=== PATIENT | male | born 1965 | race Hispanic/Latino ===

== ENCOUNTER 2019-12-02 10:09 | Emergency (ER) | payer OTHER, SELFPAY ==
--- NOTE | 2019-12-02 10:34 | RAD REPORT ---
EXAM DESCRIPTION: RAD - Chest Single View - 12/02/2019 10:22 am CLINICAL HISTORY: TRAUMA Chest pain. COMPARISON: CHEST PA AND LAT 2 VIEW dated 03/15/2014 FINDINGS: Portable technique limits examination quality. Emphysematous changes are present throughout the lungs. The heart is normal in size. No displaced fra ctures. IMPRESSION: COPD.
--- NOTE | 2019-12-02 10:38 | RAD REPORT ---
EXAM DESCRIPTION: CT - CTHCSPWOC - 12/02/2019 10:21 am CLINICAL HISTORY: Trauma, head and neck injury. fall injury > 8 ft;Pain COMPARISON: No comparisons TECHNIQUE: Axial 5 mm thick images of the head were obtained. Axial 2 mm thick images of the cervical spine were obtained with sagittal and coronal reconstruction images generated and reviewed. All CT scans are performed using dose optimization technique as appropriate and may include automated exposure control or mA/KV adjustment according to patient size. FINDINGS: CT HEAD WITHOUT CONTRAST: No acute hemorrhage, hydrocephalus or extra-axial collection is identified.No areas of brain edema or midline shift. Moderate multifocal paranasal sinus disease.The calvarium is intact. Small posterior scalp hematoma. CT CERVICAL SPINE WITHOUT CONTRAST: No fracture or subluxation.No prevertebral soft tissues swelling is identified. IMPRESSION: No acute intracranial or cervical spine findings.
[2019-12-02] MEDS ORDERED: TETANUS & DIPHTHERIA TOX,ADULT 0.5 ML VIAL ONE (10:39)
[2019-12-02 10:53] LABS: Absolute Lymphocytes (CBC) 2.7 K/uL (0.7-4.9); Basophils % 0.8 % (0-1.3); Hematocrit 46.3 % (39.6-49.0); Lymphocytes % 29.9 % (15.3-44.8); MPV 7.9 fL (7.6-11.3); RBC Red Blood Cell Count 4.96 M/uL (4.33-5.43)
[2019-12-02 11:07] LABS: BUN Blood Urea Nitrogen 11 mg/dL (7-18); Bicarbonate 26 mmol/L (21-32); Glucose Level 107 mg/dL (74-106); Potassium 3.6 mmol/L (3.5-5.1); Sodium Level 139 mmol/L (136-145)
--- NOTE | 2019-12-02 11:27 | ER ---
Nurse's Notes [facility] Name: Junito Ibrahim Age: 54 yrs Sex: Male : 1965 Arrival Date: 12/02/2019 Time: 10:11 Bed 4 Private MD: Diagnosis: Superficial injury of head;Laceration without foreign body of scalp Presentation: 12/02 10:10 Presenting complaint: EMS states: Pt on ladder, ladder fell backwards, pt fell straight jl7 onto back and hit head, positive LOC. Pt A\T\Ox4, denies pain, denies nausea, laceration noted to posterior scalp, bleeding controlled. Care prior to arrival: IV initiated. 20 GA, in the right antecubital area. Mechanism of Injury: Fall from ladder approximately 10 feet. 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 10:10 Acuity: TINY 2 jl7 10:10 Method Of Arrival: EMS: [facility] jl7 10:22 Transition of care: patient was not received from another setting of care. Onset of jl7 symptoms. Risk Assessment: Do you want to hurt yourself or someone else? Patient reports no desire to harm self or others. Initial Sepsis Screen: Does the patient meet any 2 criteria? No. Patient's initial sepsis screen is negative. Does the patient have a suspected source of infection? No. Patient's initial sepsis screen is negative. Trauma Activation: Alert Physician: ED Physician; Name: SUNNI Mullins; Notified At: 10:07; Arrived At: 10:07 Physician: General Surgeon; Name: ; Notified At: 10:07; Arrived At: Physician: Radiology; Name: Kari; Notified At: 10:07; Arrived At: 10:08 Physician: Respiratory; Name: ; Notified At: 10:07; Arrived At: Physician: Lab; Name: ; Notified At: 10:07; Arrived At: Historical: - Allergies: 10:14 Uknown pain medication; jl7 - Home Meds: 10:14 None [Active]; jl7 - PMHx: 10:14 None; jl7 - PSHx: 10:14 None; jl7 - Immunization history:: Last tetanus immunization: > 10 years ago. - Coronavirus screen:: The patient has NOT traveled to [place] in the past 14 days. Proceed with normal triage process as indicated. - Immunization history: Last tetanus immunization: > 10 years ago. - Social history:: Smoking status: Patient reports the use of cigarette tobacco products, smokes one pack cigarettes per day. - Ebola Screening: : No symptoms or risks identified at this time. Screenin:10 Abuse screen: Denies threats or abuse. Denies injuries from another. Tuberculosis jl7 screening: No symptoms or risk factors identified. 11:19 Nutritional screening: No deficits noted. Fall Risk IV access (20 points). Total Hodge jl7 Fall Scale indicates No Risk (0-24 pts). Primary Survey: 10:10 NO uncontrolled hemorrhage observed. A: Airway: patent. Breathing/Chest: Respiratory jl7 pattern: regular, Respiratory effort: spontaneous, unlabored, Breath sounds: clear, bilaterally. Chest inspection: symmetrical rise and fall of the chest. Circulation: Skin color: pink, Skin temperature: warm. Disability Alert. Exposure/Environment: All clothing and personal items were removed. Forensic evidence collection is not deemed to be indicated at this time. Items placed in patient belonging bag. 10:30 Reassessment Airway Airway Patent Breathing/Chest Respiratory pattern Regular jl7 Respiratory effort Spontaneous Unlabored Chest inspection Symmetrical Circulation Color Dickson Temperature Warm Disability Alert. Secondary Survey: 10:10 HEENT: Head Other 2.5 cm laceration to posterior scalp, bleeding controlled. jl7 Assessment: 10:10 General: Appears in no apparent distress. uncomfortable, Behavior is calm, cooperative, jl7 appropriate for age. Pain: Complains of pain in back of head Pain currently is 5 out of 10 on a pain scale. Neuro: Level of Consciousness is awake, alert, obeys commands, Oriented to person, place, time, situation, Pupils are PERRL. EENT: Oral mucosa is moist. Cardiovascular: Denies chest pain, Patient's skin is warm and dry. Respiratory: Airway is patent Respiratory effort is even, unlabored, Respiratory pattern is regular, symmetrical, Denies shortness of breath. GI: Abdomen is round non-distended, Patient currently denies abdominal pain. Derm: Skin is pink, warm \T\ dry. Injury Description: Laceration sustained to back of head is contaminated, 0.5 to 2.5 cm long, was sustained less than 30 minutes ago. a small amount of bleeding noted at this time. 11:15 Reassessment: Patient appears in no apparent distress at this time. No changes from jl7 previously documented assessment. Patient and/or family updated on plan of care and expected duration. Pain level reassessed. Patient is alert, oriented x 3, equal unlabored respirations, skin warm/dry/pink. Vital Signs: 10:10 BP 168 / 99; Pulse 76; Resp 17 S; Temp 97.8(TE); Pulse Ox 100% on R/A; Weight 106.59 kg jl7 (R); Pain 5/10; 11:05 BP 139 / 87; Pulse 73; Resp 16; Temp 98.0; Pulse Ox 98% on R/A; em1 11:45 BP 141 / 87; Pulse 73; Resp 16 S; Pulse Ox 98% on R/A; jl7 Boon Coma Score: 10:10 Eye Response: spontaneous(4). Verbal Response: oriented(5). Motor Response: obeys jl7 commands(6). Total: 15. 11:05 Eye Response: spontaneous(4). Verbal Response: oriented(5). Motor Response: obeys jl7 commands(6). Total: 15. 11:45 Eye Response: spontaneous(4). Verbal Response: oriented(5). Motor Response: obeys jl7 commands(6). Total: 15. Trauma Score (Adult): 10:10 Eye Response: spontaneous(1); Verbal Response: oriented(1); Motor Response: obeys jl7 commands(2); Systolic BP: > 89 mm Hg(4); Respiratory Rate: 10 to 29 per min(4); Rick Score: 15; Trauma Score: 12 ED Course: 10:10 Patient has correct armband on for positive identification. Placed in gown. Bed in low jl7 position. Call light in reach. Side rails up X2. 10:10 Pulse ox on. NIBP on. jl7 10:10 Patient maintains SpO2 saturation greater than 95% on room air. Thermoregulation: warm jl7 blanket given to patient. 10:11 Patient arrived in ED. hb 10:11 Tiffanie Mcmanus, RN is Primary Nurse. hb 10:12 Gabe Garnett PA is PHCP. jr8 10:12 Brent Poole MD is Attending Physician. jr8 10:19 Triage completed. jl7 10:21 CT Head C Spine In Process Unspecified. EDMS 10:22 Arm band placed on right wrist. jl7 10:23 XRAY Chest (1 view) In Process Unspecified. EDMS 10:30 Gaby Browning, ALAYNA is Primary Nurse. jl7 10:40 Initial lab(s) drawn, by pr, sent to lab. jl7 10:45 Wound care: to laceration located on scalp was cleaned with soap and water, ice pack jl7 applied. Patient tolerated well. 11:00 Assist provider with laceration repair on back of head that was 2.5 cm. or less using jl7 sharon. Set up tray. Performed by Gabe MOELLER Dressed with 4X4s, Patient tolerated poorly. 11:56 IV discontinued, intact, bleeding controlled, No redness/swelling at site. Pressure jl7 dressing applied. Administered Medications: 10:45 Drug: Tetanus-Diphtheria Toxoid Adult 0.5 ml {Mirror Machine Feeder: [employer]. Exp: jl7 10/28/2021. Lot #: [id number]. } Route: IM; Site: right deltoid; 11:00 Follow up: Response: No adverse reaction jl7 Intake: 11:50 PO: 0ml; IV: 0ml; Tubes: 0ml (); Total: 0ml. jl7 Output: 11:50 Urine: 0ml; Gastric: 0ml; Stool: 0; EBL: 0ml; Drainage: 0ml; Other: 0; Total: 0ml. jl7 Outcome: 11:27 Discharge ordered by . jr8 11:55 Patient's length of stay was not longer than 2 hours. jl7 11:56 Discharged to home ambulatory, with family. jl7 11:56 Condition: stable 11:56 Discharge instructions given to patient, family, Instructed on discharge instructions, follow up and referral plans. Demonstrated understanding of instructions, follow-up care. 11:56 Patient left the ED. jl7 Signatures: Dispatcher [employer] EDMS Vinnie Morris em1 Gabe Garnett PA PA jr8 Tiffanie Mcmanus RN RN Gaby Browning RN RN jl7 Corrections: (The following items were deleted from the chart) 11:15 10:30 Reassessment Breathing/Chest Respiratory pattern Regular Respiratory effort jl7 Spontaneous Unlabored Chest inspection Symmetrical jl7
--- NOTE | 2019-12-02 11:28 | EDPHYS ---
Physician Documentation [facility] Name: Junito Ibrahim Age: 54 yrs Sex: Male : 1965 Arrival Date: 12/02/2019 Time: 10:11 Bed 4 Private MD: ED Physician Brent Poole HPI: 12/02 10:49 This 54 yrs old Male presents to ER via EMS with complaints of Fall from jr8 ladder . 10:49 Trauma demographics: County: The injury occurred in [place] Location of Injury: The jr8 injury occurred at work. Mechanism of injury: Fall: the patient fell from a ladder approximately approximately 8 feet. Associated injuries: The patient sustained injury to the head, laceration, pain, tenderness. Onset: The symptoms/episode began/occurred acutely, today. The patient has not experienced similar symptoms in the past. The patient has not recently seen a physician. Positive LOC for about 5 seconds. Patient awake and alert upon arrival to ED. Complains of mild pain to back of head. Denies any other symptoms at this time . Historical: - Allergies: 10:14 Uknown pain medication; jl7 - Home Meds: 10:14 None [Active]; jl7 - PMHx: 10:14 None; jl7 - PSHx: 10:14 None; jl7 - Immunization history:: Last tetanus immunization: > 10 years ago. - Coronavirus screen:: The patient has NOT traveled to [place] in the past 14 days. Proceed with normal triage process as indicated. - Immunization history: Last tetanus immunization: > 10 years ago. - Social history:: Smoking status: Patient reports the use of cigarette tobacco products, smokes one pack cigarettes per day. - Ebola Screening: : No symptoms or risks identified at this time. ROS: 10:49 Eyes: Negative for injury, pain, redness, and discharge, ENT: Negative for injury, jr8 pain, and discharge, Neck: Negative for injury, pain, and swelling, Cardiovascular: Negative for chest pain, palpitations, and edema, Respiratory: Negative for shortness of breath, cough, wheezing, and pleuritic chest pain, Abdomen/GI: Negative for abdominal pain, nausea, vomiting, diarrhea, and constipation, Back: Negative for injury and pain, MS/Extremity: Negative for injury and deformity. 10:49 Skin: Positive for laceration(s), of the scalp. 10:49 Neuro: Positive for loss of consciousness. Exam: 10:49 Eyes: Pupils equal round and reactive to light, extra-ocular motions intact. Lids and jr8 lashes normal. Conjunctiva and sclera are non-icteric and not injected. Cornea within normal limits. Periorbital areas with no swelling, redness, or edema. ENT: Nares patent. No nasal discharge, no septal abnormalities noted. Tympanic membranes are normal and external auditory canals are clear. Oropharynx with no redness, swelling, or masses, exudates, or evidence of obstruction, uvula midline. Mucous membranes moist. Neck: Trachea midline, no thyromegaly or masses palpated, and no cervical lymphadenopathy. Supple, full range of motion without nuchal rigidity, or vertebral point tenderness. No Meningismus. Chest/axilla: Normal chest wall appearance and motion. Nontender with no deformity. No lesions are appreciated. Cardiovascular: Regular rate and rhythm with a normal S1 and S2. No gallops, murmurs, or rubs. Normal PMI, no JVD. No pulse deficits. Respiratory: Lungs have equal breath sounds bilaterally, clear to auscultation and percussion. No rales, rhonchi or wheezes noted. No increased work of breathing, no retractions or nasal flaring. Abdomen/GI: Soft, non-tender, with normal bowel sounds. No distension or tympany. No guarding or rebound. No evidence of tenderness throughout. Back: No spinal tenderness. No costovertebral tenderness. Full range of motion. Skin: Warm, dry with normal turgor. Normal color with no rashes, no lesions, and no evidence of cellulitis. MS/ Extremity: Pulses equal, no cyanosis. Neurovascular intact. Full, normal range of motion. Neuro: Awake and alert, GCS 15, oriented to person, place, time, and situation. Cranial nerves II-XII grossly intact. Motor strength 5/5 in all extremities. Sensory grossly intact. Cerebellar exam normal. Normal gait. 10:49 Head/face: Noted is a laceration(s), that is deep, that is jagged, 2 cm(s), of the middle portion back of head, tenderness, that is mild. Vital Signs: 10:10 BP 168 / 99; Pulse 76; Resp 17 S; Temp 97.8(TE); Pulse Ox 100% on R/A; Weight 106.59 kg jl7 (R); Pain 5/10; 11:05 BP 139 / 87; Pulse 73; Resp 16; Temp 98.0; Pulse Ox 98% on R/A; em1 11:45 BP 141 / 87; Pulse 73; Resp 16 S; Pulse Ox 98% on R/A; jl7 Rick Coma Score: 10:10 Eye Response: spontaneous(4). Verbal Response: oriented(5). Motor Response: obeys jl7 commands(6). Total: 15. 11:05 Eye Response: spontaneous(4). Verbal Response: oriented(5). Motor Response: obeys jl7 commands(6). Total: 15. 11:45 Eye Response: spontaneous(4). Verbal Response: oriented(5). Motor Response: obeys jl7 commands(6). Total: 15. Trauma Score (Adult): 10:10 Eye Response: spontaneous(1); Verbal Response: oriented(1); Motor Response: obeys jl7 commands(2); Systolic BP: > 89 mm Hg(4); Respiratory Rate: 10 to 29 per min(4); Rick Score: 15; Trauma Score: 12 Laceration: 10:49 Wound Repair of 2cm ( 0.8in ) subcutaneous laceration to scalp. Irregularly shaped.. jr8 Minimal bleeding noted.. Distal neuro/vascular/tendon intact. Wound prep: Extensive cleansing with hibiclenz, Wound irrigation with saline, Wound explored extensively. Skin closed with 2 sharon [place] using staple gun. Patient tolerated well. MDM: 10:12 Patient medically screened. jr8 11:23 Data reviewed: vital signs, nurses notes, lab test result(s), radiologic studies, CT jr8 scan, plain films. Data interpreted: Pulse oximetry: on room air is 98 %. Interpretation: normal. Counseling: I had a detailed discussion with the patient and/or guardian regarding: the historical points, exam findings, and any diagnostic results supporting the discharge/admit diagnosis, lab results, radiology results, the need for outpatient follow up, a family practitioner, to return to the emergency department if symptoms worsen or persist or if there are any questions or concerns that arise at home. ED course: Patient has remained stable in ED. No headaches, blurred vision, amnesia, nausea, vomiting, or other focal neurologic deficits. Rest of exam, labs, and imaging unremarkable. Doing well at this time. Will send home to f/u with PCP for sharon removal. If something were to change or worsen to come back to ED immediately. Patient good with this plan . 12/02 10:13 Order name: Basic Metabolic Panel; Complete Time: 11:23 12/02 10:13 Order name: CBC with Diff 12/02 10:12 Order name: CT Head C Spine; Complete Time: 10:57 12/02 10:12 Order name: XRAY Chest (1 view); Complete Time: 10:57 12/02 10:13 Order name: Creatinine for Radiology; Complete Time: 11:05 12/02 10:13 Order name: Labs collected and sent; Complete Time: 10:32 Administered Medications: 10:45 Drug: Tetanus-Diphtheria Toxoid Adult 0.5 ml {Mol[employer] Coloring Operator: [employer] Exp: jl7 10/28/2021. Lot #: [id number]. } Route: IM; Site: right deltoid; 11:00 Follow up: Response: No adverse reaction jl7 Disposition: 14:17 Co-signature as Attending Physician, Brent Poole MD I agree with the assessment and kdr plan of care. Disposition: 12/02/19 11:27 Discharged to Home. Impression: Superficial injury of head, Laceration without foreign body of scalp. - Condition is Stable. - Discharge Instructions: Head Injury, Adult, Hematoma, Laceration Care, Adult. - Medication Reconciliation Form, Thank You Letter, Antibiotic Education, Prescription Opioid Use, Work release form form. - Follow up: Private Physician; When: 1 week; Reason: Recheck today's complaints, Continuance of care, Re-evaluation by your physician. - Problem is new. - Symptoms have improved. Signatures: Dispatcher [employer] EDMS Brent Poole MD MD kdr Roszak, Josh, PA PA jr8 Gaby Browning RN RN jl7 Corrections: (The following items were deleted from the chart) 11:56 11:27 12/02/2019 11:27 Discharged to Home. Impression: Superficial injury of head; jl7 Laceration without foreign body of scalp. Condition is Stable. Forms are Medication Reconciliation Form, Thank You Letter, Antibiotic Education, Prescription Opioid Use. Follow up: Private Physician; When: 1 week; Reason: Recheck today's complaints, Continuance of care, Re-evaluation by your physician. Problem is new. Symptoms have improved. jr8
[2019-12-02 13:13] VITALS: BP 139/87; TEMP 98; O2SAT 98
== END 2019-12-02 11:56 | disposition home or self-care (01) ==
LOC: ER 10:09
PROC: 0JQ00ZZ Repair Scalp Subcutaneous Tissue and Fascia, Open Approach (ICD-10-PCS; principal; 2019-12-02)
DX: S01.01XA Laceration without foreign body of scalp, initial encounter (principal); W11.XXXA Fall on and from ladder, initial encounter; Y93.9 Activity, unspecified; Y92.89 Other specified places as the place of occurrence of the external cause; Y99.8 Other external cause status; F17.210 Nicotine dependence, cigarettes, uncomplicated; Z23 Encounter for immunization
CPT/HCPCS: 36415; 70450; 71045; 72125; 80048; 85025; 90471; 90714; 99285

== ENCOUNTER 2019-12-09 | Emergency (ER) | payer OTHER, SELFPAY ==
--- NOTE | 2019-12-09 16:54 | EDPHYS ---
Physician Documentation [facility] Name: Junito Ibrahim Age: 54 yrs Sex: Male : 1965 Arrival Date: 12/09/2019 Time: 16:11 Bed 25 Private MD: ED Physician Bg Bautista HPI: 12/09 17:07 This 54 yrs old Male presents to ER via Ambulatory with complaints of Suture kb Removal. 17:07 The patient has sharon on the scalp. Previous treatment: The patient was initially kb treated 7 day(s) ago, the care was rendered at [facility]. Sutures/sharon progress: The patient has no c/o's. The wound is well-healing with no redness, swelling, discharge, or dehiscence reported. The patient has not experienced similar symptoms in the past. The patient has not recently seen a physician. Historical: - Allergies: 16:26 No Known Allergies; ll1 - PMHx: 16:26 None; ll1 - PSHx: 16:26 None; ll1 - Social history:: Smoking status: Patient reports the use of cigarette tobacco products, Patient/guardian denies using street drugs. ROS: 17:06 Constitutional: Negative for fever, chills, and weight loss, Neck: Negative for injury, kb pain, and swelling, Cardiovascular: Negative for chest pain, palpitations, and edema, Respiratory: Negative for shortness of breath, cough, wheezing, and pleuritic chest pain, Abdomen/GI: Negative for abdominal pain, nausea, vomiting, diarrhea, and constipation, Back: Negative for injury and pain, MS/Extremity: Negative for injury and deformity, Neuro: Negative for headache, weakness, numbness, tingling, and seizure. 17:06 Skin: Positive for of the scalp, sharon intact. Exam: 17:06 Constitutional: This is a well developed, well nourished patient who is awake, alert, kb and in no acute distress. Head/Face: Normocephalic, atraumatic. Neck: Trachea midline, no thyromegaly or masses palpated, and no cervical lymphadenopathy. Supple, full range of motion without nuchal rigidity, or vertebral point tenderness. No Meningismus. Chest/axilla: Normal chest wall appearance and motion. Nontender with no deformity. No lesions are appreciated. Cardiovascular: Regular rate and rhythm with a normal S1 and S2. No gallops, murmurs, or rubs. Normal PMI, no JVD. No pulse deficits. Respiratory: Lungs have equal breath sounds bilaterally, clear to auscultation and percussion. No rales, rhonchi or wheezes noted. No increased work of breathing, no retractions or nasal flaring. Abdomen/GI: Soft, non-tender, with normal bowel sounds. No distension or tympany. No guarding or rebound. No evidence of tenderness throughout. MS/ Extremity: Pulses equal, no cyanosis. Neurovascular intact. Full, normal range of motion. Neuro: Awake and alert, GCS 15, oriented to person, place, time, and situation. Cranial nerves II-XII grossly intact. Motor strength 5/5 in all extremities. Sensory grossly intact. Cerebellar exam normal. Normal gait. 17:06 Skin: Wound recheck: Staple laceration closure: the wound is healing well, the edges are well approximated, no evidence of dehiscence, no drainage, no erythema, no swelling. Vital Signs: 16:24 BP 135 / 85; Pulse 72; Resp 18; Temp 98.4; Pulse Ox 98% ; Weight 104.33 kg; Height 5 ll1 ft. 6 in. (167.64 cm); Pain 1/10; 16:24 Body Mass Index 37.12 (104.33 kg, 167.64 cm) ll1 MDM: 16:29 Patient medically screened. kb 17:07 Data reviewed: vital signs, nurses notes. Data interpreted: Pulse oximetry: on room air kb is 98 %. Interpretation: normal. Counseling: I had a detailed discussion with the patient and/or guardian regarding: the historical points, exam findings, and any diagnostic results supporting the discharge/admit diagnosis, the need for outpatient follow up, a family practitioner, to return to the emergency department if symptoms worsen or persist or if there are any questions or concerns that arise at home. Administered Medications: No medications were administered Disposition: 17:51 Co-signature as Attending Physician, Bg Bautista MD Chart signed for administrative ps1 purposes. . Disposition: 12/09/19 16:53 Discharged to Home. Impression: Encounter for removal of sutures - sharon. - Condition is Stable. - Discharge Instructions: Suture Removal, Care After. - Medication Reconciliation Form, Thank You Letter, Antibiotic Education, Prescription Opioid Use form. - Follow up: Emergency Department; When: As needed; Reason: Worsening of condition. Follow up: Private Physician; When: 2 - 3 days; Reason: Recheck today's complaints, Continuance of care, Re-evaluation by your physician. Signatures: Dagmar Bearden, BEATRIZ-C PROCESS EXCELLENCE MANAGER-CkBg Bennett MD MD ps1 Mally Wiseman RN RN Flaca Weathers RN RN ll1 Corrections: (The following items were deleted from the chart) 16:54 16:53 12/09/2019 16:53 Discharged to Home. Impression: Encounter for removal of sutures vc - sharon. Condition is Stable. Forms are Medication Reconciliation Form, Thank You Letter, Antibiotic Education, Prescription Opioid Use. Follow up: Emergency Department; When: As needed; Reason: Worsening of condition. Follow up: Private Physician; When: 2 - 3 days; Reason: Recheck today's complaints, Continuance of care, Re-evaluation by your physician. kb
--- NOTE | 2019-12-09 16:54 | ER ---
Nurse's Notes [facility] Name: Junito Ibrahim Age: 54 yrs Sex: Male : 1965 Arrival Date: 12/09/2019 Time: 16:11 Bed 25 Private MD: Diagnosis: Encounter for removal of sutures-loan Presentation: 12/09 16:24 Chief complaint: Patient states: Loan need to be removed from back of head. Placed 1 ll1 weeks ago. Denies fever and/or drainage. Coronavirus screen: The patient has NOT traveled to [place] in the past 14 days. Proceed with normal triage procedures. Ebola Screen: No symptoms or risks identified at this time. Initial Sepsis Screen: Does the patient meet any 2 criteria? No. Patient's initial sepsis screen is negative. Does the patient have a suspected source of infection? No. Patient's initial sepsis screen is negative. Risk Assessment: Do you want to hurt yourself or someone else? Patient reports no desire to harm self or others. 16:24 Method Of Arrival: Ambulatory ll1 16:24 Acuity: TINY 5 ll1 Historical: - Allergies: 16:26 No Known Allergies; ll1 - PMHx: 16:26 None; ll1 - PSHx: 16:26 None; ll1 - Social history:: Smoking status: Patient reports the use of cigarette tobacco products, Patient/guardian denies using street drugs. Vital Signs: 16:24 BP 135 / 85; Pulse 72; Resp 18; Temp 98.4; Pulse Ox 98% ; Weight 104.33 kg; Height 5 ll1 ft. 6 in. (167.64 cm); Pain 1/10; 16:24 Body Mass Index 37.12 (104.33 kg, 167.64 cm) ll1 ED Course: 16:11 Patient arrived in ED. fj1 16:22 [facility]C [facility] kb 16:22 Bg Bautista MD is Attending Physician. kb 16:25 Triage completed. ll1 16:26 Arm band placed on right wrist. Patient placed in an exam room. ll1 16:53 Removal of Removed loan from scalp Loan site is reddened Patient tolerated well. vc Administered Medications: No medications were administered Outcome: 16:53 Discharge ordered by . kb 16:54 Patient left the ED. vc Signatures: Dagmar Bearden, [employer]-C [employer]-Mally Elizabeth RN RN vc Saturnino Reina fj1 Flaca Sandhu RN RN ll1
== END 2019-12-09 16:54 | disposition home or self-care (01) ==
DX: Z48.02 Encounter for removal of sutures (principal)
CPT/HCPCS: 99281

== ENCOUNTER 2023-03-20 08:55 | Emergency (ER) | payer OTHER ==
[2023-03-20 09:36] LABS: Absolute Lymphocytes (CBC) 3.7 K/uL (0.7-4.9); Lymphocytes % 42.8 % (15.3-44.8); MPV 7.7 fL (7.6-11.3); RBC Red Blood Cell Count 4.74 M/uL (4.33-5.43)
--- NOTE | 2023-03-20 09:44 | RAD REPORT ---
EXAM DESCRIPTION: CT - Head Brain Wo Cont - 03/20/2023 9:29 am CLINICAL HISTORY: DIZZINESS COMPARISON: Head angio dated 03/20/2023 TECHNIQUE: Noncontrast head CT images ad were obtained without IV contrast. Multiplanar reformats we re generated and reviewed. All CT scans are performed using dose optimization technique as appropriate and may include automated exposure control or mA/KV adjustment according to patient size. FINDINGS: No intracranial hemorrhage, mass, or edema. Midline structures are unremarkable. Normal ventricular caliber for age. Symmetric mild mineralization in the globus pallidus, nonspecific. Ling-white matter differentiation is preserved, without evidence of acute infarct. No abnormal extra- axial fluid collections. Mastoid air cells are well aerated. Scattered up to moderate mucosal thickening throughout the [place] e sinuses with air-fluid levels within the left maxillary sinus and left ethmoid air cells. No acute bony findings. IMPRESSION: No evidence of an acute intracranial process. Inflammatory mucosal thickening with air-fluid levels in the left maxillary and ethmoidal sinuses. Pl ease correlate clinically for evidence of acute sinusitis.
[2023-03-20] MEDS ORDERED: DIAZEPAM 10 MG/2 ML INJ SYRINGE ONE (09:46)
[2023-03-20] MEDS ORDERED: ONDANSETRON 4 MG/2 ML VIAL ONE (09:46)
[2023-03-20 09:54] LABS: Potassium 3.9 mEq/L (3.5-5.1); Troponin High Sensitivity 6.5 pg/mL (<58.9)
--- NOTE | 2023-03-20 09:57 | RAD REPORT ---
EXAM DESCRIPTION: CT - Head angio - 03/20/2023 9:32 am CLINICAL HISTORY: DIZZINESS COMPARISON: Head Brain Wo Cont dated 03/20/2023 TECHNIQUE: Axial CT angiography images of the head was performed with multiplanar and maximum intens ity projection reconstructions. Images performed following intravenous administration of 100mL Isovue 370. All CT scans are performed using dose optimization technique as appropriate and may include automated exposure control or mA/KV adjustment according to patient size. FINDINGS: No evidence of large vessel occlusion. No evidence of aneurysm or dissection flap is detec dung. No flow-limiting stenosis or vascular malformation identified. Antegrade flow is seen in the vertebral arteries. The vertebral arteries are codominant. The visualized dural venous sinuses are grossly patent. IMPRESSION: No evidence of large vessel occlusion or flow-limiting stenosis.
--- NOTE | 2023-03-20 10:00 | RAD REPORT ---
EXAM DESCRIPTION: CT - Neck Angio - 03/20/2023 9:32 am CLINICAL HISTORY: dizziness COMPARISON: Head C Spine Mpr Wo Con dated 12/02/2019 TECHNIQUE: Axial CT angiography images of the head was performed with multiplanar and maximum intens ity projection reconstructions. Images performed following intravenous administration of 100mL Isovue 370. All CT scans are performed using dose optimization technique as appropriate and may include automated exposure control or mA/KV adjustment according to patient size. Quantification of carotid stenosis, if any, is performed according to NASCET criteria. FINDINGS: Motion artifact at the level of the mid neck to this place limits evaluation. A left aortic arch is identified with normal three vessel configuration of the great vessels. No significant flow abnormality is seen of the common carotid bilaterally. No significant stenosis is identified involving the cervical segments of both internal carotid arteri es. Normal flow is seen within both vertebral arteries. IMPRESSION: No significant flow abnormality of the neck vessels is identified, within limits of lyssa on artifact. CAROTID STENOSIS REFERENCE USING NASCET CRITERIA: % ICA stenosis = (1 - narrowest ICA diameter/diameter of distal cervical ICA) x 100. Mild - <50% stenosis. Moderate - 50-69% stenosis. Severe - 70-94% stenosis. Near occlusion - 95-99% stenosis. Occluded - 100% stenosis.
--- NOTE | 2023-03-20 11:06 | RAD REPORT ---
EXAM DESCRIPTION: [place] Single View03/20/2023 10:36 am CLINICAL HISTORY: dizziness, near syncope COMPARISON: Chest Single View dated 12/02/2019; CHEST PA AND LAT 2 VIEW dated 03/15/2014 TECHNIQUE: Portable AP view of the chest. FINDINGS: The lungs are clear. No pneumothorax or effusion. The cardiomediastinal contours are unre markable. IMPRESSION: No acute cardiopulmonary process.
--- NOTE | 2023-03-20 11:44 | EDPHYS ---
Physician Documentation [facility] Name: Junito Ibrahim Age: 57 yrs Sex: Male : 1965 Arrival Date: 03/20/2023 Time: 08:55 Bed 13 Private MD: ED Physician Jose James HPI: 03/20 09:05 This 57 yrs old Male presents to ER via Ambulatory with complaints of jmm Dizziness. 09:05 Onset: The symptoms/episode began/occurred acutely, this morning. This is a 57-year-old jmm male with history of hypertension the presents emerged part with acute onset dizziness beginning this morning when he got out of bed. Denies nausea. Describes the dizziness as a sense of the room spinning. Denies lightheadedness. Patient denies similar episodes in the past.. Historical: - Allergies: 09:06 Acetaminophen; ll1 - PMHx: 09:06 Hypertensive disorder; sinus infections; ll1 - PSHx: 09:06 None; ll1 - Immunization history:: Adult Immunizations up to date, Client reports having NOT received the Covid vaccine. - Social history:: Smoking status: Patient reports the use of cigarette tobacco products, smokes one-half pack cigarettes per day. ROS: 09:05 Constitutional: Negative for fever, chills, and weight loss, Cardiovascular: Negative jmm for chest pain, palpitations, and edema, Respiratory: Negative for shortness of breath, cough, wheezing, and pleuritic chest pain. 09:05 Neuro: Positive for dizziness. 09:05 All other systems are negative. Exam: 09:05 Constitutional: This is a well developed, well nourished patient who is awake, alert, jmm and in no acute distress. Head/Face: atraumatic. 09:05 ENT: Moist Mucus Membranes Neck: Trachea midline, Supple Chest/axilla: Normal chest wall appearance and motion. Cardiovascular: Regular rate and rhythm. No edema appreciated Respiratory: Normal respirations, no respiratory distress appreciated Abdomen/GI: Non distended Back: Normal ROM Skin: General appearance color normal MS/ Extremity: Moves all extremities, no obvious deformities appreciated, no edema noted to the lower extremities 09:05 Eyes: Nystagmus: nystagmus with fast component noted, Horizontal nystagmus noted, fatigable. 09:05 Neuro: Orientation: is normal, Mentation: is normal, Memory: is normal, Cerebellar function: normal finger to nose testing, Gait: is steady. 09:05 Psych: Behavior/mood is pleasant, cooperative. Vital Signs: 09:07 BP 146 / 83; Pulse 63; Resp 17; Temp 97.7; Pulse Ox 98% on R/A; Weight 106.14 kg; Pain ll1 0/10; 09:50 Pulse 63; Resp 18; Pulse Ox 95% on R/A; db 12:02 BP 145 / 89; Pulse 79; Resp 16; Pulse Ox 98% on R/A; iw 09:07 Pain Scale: Adult ll1 MDM: 09:05 Patient medically screened. [facility] 09:05 Differential Diagnosis: Vertigo, VBI, large vessel occlusion, CVA, near syncope. Data [facility] reviewed: vital signs, nurses notes. 11:41 Consideration of Admission/Observation Escalation of care including [facility] admission/observation considered. I considered the following discharge prescriptions or medication management in the emergency department Medications were administered in the Emergency Department. See MAR. Counseling: I had a detailed discussion with the patient and/or guardian regarding: the historical points, exam findings, and any diagnostic results supporting the discharge/admit diagnosis, lab results, radiology results, the need for outpatient follow up, to return to the emergency department if symptoms worsen or persist or if there are any questions or concerns that arise at home. ED course: Patient is alert nontoxic in appearance NAD. States feeling much better after IV Valium. Able to ambulate without difficulty. Patient advised follow-up with ENT and neuro for reevaluation otherwise given strict return precautions. Patient understood and agrees plan of care.. 03/20 09:10 Order name: Basic Metabolic Panel; Complete Time: 09:59 [facility] 03/20 09:10 Order name: CBC with Diff [facility] 03/20 09:10 Order name: Troponin HS; Complete Time: 09:59 [facility] 03/20 10:01 Order name: Manual Differential [facility] 03/20 10:28 Order name: CREATININE WHOLE BLOOD; Complete Time: 10:33 [facility] 03/20 09:10 Order name: XRAY Chest (1 view); Complete Time: 11:08 [facility] 03/20 09:10 Order name: CT Head Brain wo Cont; Complete Time: 09:44 [facility] 03/20 09:10 Order name: CT Head Angio; Complete Time: 09:59 [facility] 03/20 09:10 Order name: CT Neck Angio; Complete Time: 10:03 [facility] 03/20 09:10 Order name: EKG; Complete Time: 09:11 [facility] 03/20 09:10 Order name: Cardiac monitoring; Complete Time: 09:45 [facility] 03/20 09:10 Order name: EKG - Nurse/Tech; Complete Time: 09:50 [facility] 03/20 09:10 Order name: IV Saline Lock; Complete Time: 09:24 [facility] 03/20 09:10 Order name: Labs collected and sent; Complete Time: 09:24 [facility] 03/20 09:10 Order name: O2 Per Protocol; Complete Time: 09:45 [facility] 03/20 09:10 Order name: O2 Sat Monitoring; Complete Time: 09:45 [facility] 03/20 11:01 Order name: Misc. Order: ambulate patient; Complete Time: 11:59 [facility] Administered Medications: 09:45 Drug: Diazepam IVP 5 mg Route: IVP; Site: right antecubital; db 09:45 Drug: Ondansetron IVP 4 mg Route: IVP; Site: right antecubital; db Disposition Summary: 03/20/23 11:43 Discharge Ordered Location: Home [facility] Condition: Stable [facility] Diagnosis - Other peripheral vertigo [facility] Followup: [facility] - With: Kristin Antonio MD - When: 2 - 3 days - Reason: Recheck today's complaints, Continuance of care, Re-evaluation by your physician Followup: [facility] - With: Owen Oneal MD - When: 2 - 3 days - Reason: Recheck today's complaints, Continuance of care, Re-evaluation by your physician Discharge Instructions: - Discharge Summary Sheet [facility] - Vertigo jm - How to Perform the Lacho Maneuver [facility] Forms: - Medication Reconciliation Form [facility] - Thank You Letter [facility] - Antibiotic Education [facility] - Prescription Opioid Use [facility] - Work release form iw Prescriptions: - Meclizine 25 mg Oral Tablet - take 1 tablet by ORAL route every 8 hours As needed; 30 tablet; Refills: 0, jmm Product Selection Permitted Signatures: Dispatcher [employer] Kelvin Sweeney PA PA jmm Lewis, Lynsay, RN RN ll1 Mccoy, Jesi, RN RN db
--- NOTE | 2023-03-20 11:44 | ER ---
Nurse's Notes [facility] Name: Junito Ibrahim Age: 57 yrs Sex: Male : 1965 Arrival Date: 03/20/2023 Time: 08:55 Bed 13 Private MD: Diagnosis: Other peripheral vertigo Presentation: 03/20 09:07 Chief complaint: Patient states: Dizziness and weakness started around 5:30 AM. No pain ll1 or fever. Coronavirus screen: Vaccine status: Patient reports being unvaccinated. Client denies travel out of the [place] in the last 14 days. fatigue, Client presents with at least one sign or symptom that may indicate coronavirus-19. Standard/surgical mask placed on the client. Ebola Screen: Patient denies travel to an Ebola-affected area in the 21 days before illness onset. Initial Sepsis Screen: Does the patient meet any 2 criteria? No. Patient's initial sepsis screen is negative. Does the patient have a suspected source of infection? No. Patient's initial sepsis screen is negative. Risk Assessment: Do you want to hurt yourself or someone else? Patient reports no desire to harm self or others. Onset of symptoms was March 20, 2023. 09:07 Method Of Arrival: Ambulatory ll1 09:07 Acuity: TINY 3 ll1 Triage Assessment: 09:10 General: Appears in no apparent distress. Behavior is calm, cooperative, appropriate ll1 for age. General: Reports fatigue for. Pain: Denies pain. Neuro: Reports dizziness, weakness. Historical: - Allergies: 09:06 Acetaminophen; ll1 - PMHx: 09:06 Hypertensive disorder; sinus infections; ll1 - PSHx: 09:06 None; ll1 - Immunization history:: Adult Immunizations up to date, Client reports having NOT received the Covid vaccine. - Social history:: Smoking status: Patient reports the use of cigarette tobacco products, smokes one-half pack cigarettes per day. Screenin:51 [facility] ED Fall Risk Assessment (Adult) History of falling in the last 3 months, db including since admission No falls in past 3 months (0 pts) Confusion or Disorientation No (0 pts) Intoxicated or Sedated No (0 pts) Impaired Gait No (0 pts) Mobility Assist Device Used No (0 pt) Altered Elimination No (0 pt) Score/Fall Risk Level 0 - 2 = Low Risk Oriented to surroundings, Maintained a safe environment. Abuse screen: Denies threats or abuse. Denies injuries from another. Nutritional screening: No deficits noted. Tuberculosis screening: No symptoms or risk factors identified. Assessment: 09:36 Reassessment: Patient appears in no apparent distress at this time. patient returned db from CT. 09:51 Reassessment: Patient appears in no apparent distress at this time. Patient and/or db family updated on plan of care and expected duration. Pain level reassessed. Patient is alert/active/playful, equal unlabored respirations, skin warm/dry/pink. Neuro: Level of Consciousness is awake, alert, obeys commands, Oriented to person, place, time, situation, Speech is normal, Reports dizziness. Cardiovascular:. Cardiovascular: Capillary refill. 12:02 Reassessment: Patient appears in no apparent distress at this time. Patient and/or iw family updated on plan of care and expected duration. Pain level reassessed. Patient is alert, oriented x 3, equal unlabored respirations, skin warm/dry/pink. Patient states feeling better. Patient states symptoms have improved. Cardiovascular: Rhythm is regular. Vital Signs: 09:07 BP 146 / 83; Pulse 63; Resp 17; Temp 97.7; Pulse Ox 98% on R/A; Weight 106.14 kg; Pain ll1 0/10; 09:50 Pulse 63; Resp 18; Pulse Ox 95% on R/A; db 12:02 BP 145 / 89; Pulse 79; Resp 16; Pulse Ox 98% on R/A; iw 09:07 Pain Scale: Adult ll1 ED Course: 08:56 Patient arrived in ED. rg4 08:56 Kelvin Christian PA is PHCP. jmm 08:56 Jose James MD is Attending Physician. jmm 08:58 Arm band placed on Patient placed in an exam room, on a stretcher. ll1 09:02 Jesi Mccoy, RN is Primary Nurse. db 09:10 Triage completed. ll1 09:24 Initial lab(s) drawn, by me, sent to lab. Inserted saline lock: 20 gauge in right iw antecubital area, using aseptic technique. Blood collected. 09:30 CT Head Brain wo Cont In Process Unspecified. EDMS 09:34 CT Head Angio In Process Unspecified. EDMS 09:34 CT Neck Angio In Process Unspecified. EDMS 09:56 Door closed. Noise minimized. Pillow given. jw7 09:56 EKG done, by ED staff, reviewed by Kelvin MOELLER. jw7 10:10 Patient taken to an exam room, Patient moved back from CT. db 10:37 XRAY Chest (1 view) In Process Unspecified. EDMS 11:42 Kristin Antonio MD is Referral Physician. jmm 11:43 Owen Oneal MD is Referral Physician. jmm 12:02 Patient has correct armband on for positive identification. iw 12:02 No provider procedures requiring assistance completed. IV discontinued, intact, iw bleeding controlled, No redness/swelling at site. Pressure dressing applied. Administered Medications: 09:45 Drug: Diazepam IVP 5 mg Route: IVP; Site: right antecubital; db 09:45 Drug: Ondansetron IVP 4 mg Route: IVP; Site: right antecubital; db Medication: 12:02 VIS not applicable for this client. iw Outcome: 11:43 Discharge ordered by MD. m 12:02 Discharged to home ambulatory, with family. iw 12:02 Condition: good 12:02 Discharge instructions given to patient, family, Instructed on discharge instructions, follow up and referral plans. medication usage, Demonstrated understanding of instructions, follow-up care, medications, Prescriptions given X 1. 12:03 Patient left the ED. iw Signatures: Dispatcher [employer] EDKelvin Luong PA PA jmm Williams, Irene, ALAYNA CATALAN iw Benita Otero rg4 Flaca Sandhu RN RN 1 Lisa Serrano jw7 Jesi Mccoy, RN RN db
[2023-03-20 12:22] VITALS: TEMP 97.7
[2023-03-20 12:29] VITALS: BP 145/89; O2SAT 98
--- NOTE | 2023-03-20 13:25 | EKG ---
Test Date: 2023-03-20 Test Time: 09:51:03 Ostrich Farmer: MARCIA MEASUREMENT RESULTS: Intervals: Rate: 60 NH: 128 QRSD: 92 QT: 440 QTc: 440 [place]: P: 23 NH: 128 QRS: 6 T: 5 INTERPRETIVE STATEMENTS: Normal sinus rhythm Normal ECG No previous ECG available for comparison Electronically Signed On 03-20-23 13:24:56 CDT by Enrrique Vega
[2023-03-20 14:19] LABS: Platelet Estimate ADEQ
[2023-03-20 14:20] LABS: Blood Morphology Comment NOT SEEN (NOT SEEN)
== END 2023-03-20 12:03 | disposition home or self-care (01) ==
LOC: ER 08:55
DX: H81.399 Other peripheral vertigo, unspecified ear (principal); I10 Essential (primary) hypertension; F17.210 Nicotine dependence, cigarettes, uncomplicated; Z88.6 Allergy status to analgesic agent
CPT/HCPCS: 93005; 85025; 80048; 36415; 82565; 84484; 70450; 70496; 70498; 71045; 96375; 96374; 99285; Q9967; J3360; J2405